=== PATIENT | male | born 1940 | race Caucasian/White ===

== ENCOUNTER 2022-12-03 11:37 | Emergency (ER) | payer MEDICARE, SELFPAY ==
[2022-12-03] VITALS (7 sets, daily range): BP systolic 94–140; BP diastolic 45–78; PULSE 94–105; RESP 12–20; TEMP 36.6–36.7; O2SAT 94–100; BMI 25.7
--- NOTE | 2022-12-03 11:41 | ECG_ITS ---
APPROVED REPORT Exam: Resting ECG HR:99 bpm ECG Measurements Heart Rate 99 AXES [place] 134 P -26 QRSd 138 QRS -46 QT 380 T 40 QTc 436 Conclusion SINUS RHYTHM RIGHT BUNDLE BRANCH BLOCK [120+ ms QRS DURATION, UPRIGHT V1, 40+ ms S IN I/aVL/V4/V5/V6] LEFT ANTERIOR FASCICULAR BLOCK [QRS AXIS <= -45, QR IN I, RS IN II] ABNORMAL ECG UNCONFIRMED REPORT Electronically signed by : Rolando Medeiros MD 12/05/2022 15:08:11
--- NOTE | 2022-12-03 11:45 | PC.NURSE ---
Dr. Fraga at BS for pt eval
--- NOTE | 2022-12-03 11:56 | CT_ITS ---
FINAL REPORT CLINICAL HISTORY: right flank pain, hypotension, recent surgery COMPARISON: None FINDINGS: CT OF THE ABDOMEN AND PELVIS WITH CONTRAST Axial CT images of the abdomen and pelvis were obtained after the administration of IV contrast. Coronal and sagittal reformatted images were also obtained and reviewed. This study was performed with techniques to keep radiation doses as low as reasonably achievable (ALARA). Individualized dose reduction techniques using automated exposure control or adjustment of mA and/or kV according to the patient's size were employed. Abdomen: There is mild bibasilar atelectasis present, and a small amount of ascites in the abdomen. Moderate vascular calcifications are noted. The heart is normal in size. There are postoperative changes of a right hemicolectomy. The liver has an unremarkable appearance, without evidence of mass or biliary ductal dilatation. The spleen is unremarkable. No adrenal mass is present. The pancreas has an unremarkable appearance. The kidneys are normal, without evidence of mass or hydronephrosis. The aorta is normal in caliber. There is no free fluid or adenopathy. There are multiple fluid-filled bowel loops in a nonspecific pattern, with a mildly dilated small bowel loop in the right upper quadrant. A partial small bowel obstruction cannot be excluded. Pelvis: There is a dumbbell shaped fluid collection in the central pelvis, which extends into the left inguinal canal with a thin wall, suggestive of a chronic hematoma or abscess. The urinary bladder is unremarkable. IMPRESSION: Multiple fluid-filled bowel loops, with a mildly dilated small bowel loop in the right upper quadrant, and a partial small bowel obstruction cannot be excluded. Would recommend a follow-up CT if clinically indicated. Dumbbell shaped fluid collection in the central pelvis extending into the left inguinal canal with a thin wall. This likely represents a chronic hematoma or an abscess. Reviewed, Interpreted and Dictated by Kevin Rucker III, MD Transcribed by Phyllis Ko Authenticated and [facility]
--- NOTE | 2022-12-03 11:59 | HMH.EDGENADL ---
Discharge Plan Disposition Patient Disposition: Home, Self-Care Referrals Follow up/Referrals: Provider,Referral, [Primary Care Provider] - See instructions Activity Restrictions/Add. Instructions Additional Instructions/Restrictions: Lease follow-up with your primary care doctor as previously instructed and with your general surgeons as previously instructed return with any worsening symptoms. Please push fluids by mouth as discussed and return with any other concerns. Clinical Impressions Clinical Impression: Near syncope, Acute hypotension, Acute dehydration, Acute flank pain Instructions Patient Instructions: DI for Syncope in Adults (Fainting), DI for Syncope in Children (Fainting) Discharge ED Provider: Nina Fraga General Adult HPI General Chief complaint: Syncope Stated complaint: syncope Time Seen by Provider: 12/03/22 11:39 Mode of Arrival: EMS Source of Information: Patient and EMS Limitations: No Limitations Description of Symptoms (Recalled from ER Triage Doc. by RN): Pt reports dizziness upon standing, near syncope at home. Per EMS report syncople episode when moving pt out of his room at home, states bp dropped to 60/40 Upon arrival to ED pt reports feeling somewhat better. Pt denies n/v/d or fever. Pt has a healing incision on abd from a colon resection in the past few weeks. History of Present Illness HPI narrative: Patient is an 82-year-old male here with hypotension and near syncope. 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 He is not on any anticoagulants and states he has not had any melena hematochezia or hematemesis. Has had some lightheadedness and decreased p.o. intake specifically water since his surgery but already did not drink much at baseline prior to his surgery. This past Tuesday he had a lightheaded event which made him fall and intermittently he been feeling okay but this morning he felt very lightheaded particular with changing positions and had 2 near syncopal episodes. EMS in route state his blood pressure was 60/40 they gave him 500 cc of fluid and patient states he feels much better. Patient denies any chest pain shortness of breath or any other symptoms associated with this today. No fevers or chills etc. Only other symptom patient complains of his severe right flank pain has been going on for several days. Related Data Allergies Allergy/AdvReac Type Severity Reaction Status Date / Time No Known Allergies Allergy Verified 12/03/22 11:55 [facility] Disclaimer: The information contained in this section may have been updated after the patient was seen, as this information can be updated by other users. Social History Smoking Status: Never smoker alcohol intake: never current occupational status: other Travel in the last 8 weeks: None ROS Obtained: Yes All systems reviewed & no additional complaints except as documented Physical Exam General General appearance: alert and in no apparent distress Respiratory Respiratory exam: Present normal lung sounds bilaterally; Absent respiratory distress, wheezes or stridor Cardiovascular Cardiovascular exam: Present regular rate; Absent tachycardia Abdominal Exam Abdominal exam: Present soft and other (Midline incisional scar well-healing); Absent distention or tenderness Back Exam Back exam: Present normal inspection; Absent tenderness (Specifically no midline tenderness), CVA tenderness (R) or CVA tenderness (L) Neurological Exam Neurological exam: Present alert and oriented X3 Medical Decision Making Campbell Inquiry Pt receiving controlled substance: No Vital Signs: 12/03/22 11:38 12/03/22 11:55 12/03/22 12:30 Temperature 97.9 F Temperature Source Temporal Artery Scan Pulse Rate 96 H Pulse Rate [Apical] 98 H Pulse Rate [Orthostatic Lying Apical] 105 H Respiratory Rate 16 20 Blood Pressure 111/65 Blo
[2022-12-03 12:29] LABS: Basophils % 0.2 % (0.1-2.0); Eosinophils # 0.1 K/mm3 (0.0-0.4); Eosinophils % 0.8 % (0.1-12.0); Hematocrit 38.7 % (42.0-52.0); Hemoglobin 12.4 g/dL (14.1-18.0); Lymphocytes % 5.6 % (10-50); Mean Corpuscular Volume 93.9 fl (80-94); Monocytes # 1.2 K/mm3 (0.1-1.0); Monocytes % 6.5 % (1.7-9.3); Neutrophils # 15.9 K/mm3 (1.8-7.8); Platelet Count 383 K/mm3 (142-424); Red Blood Count 4.12 M/mm3 (4.60-6.20); Red Cell Distribution Width 13.6 % (11.5-17.5); White Blood Count 18.3 K/mm3 (4.8-10.8)
[2022-12-03 12:30] LABS: MANUAL DIFFERENTIAL MANUAL DIFFERENTIAL (MANUAL DIFF)
[2022-12-03 12:37] LABS: Alanine Aminotransferase 31 U/L (12-78); Albumin Level 3.2 g/dl (3.5-5.0); Albumin/Globulin Ratio 0.8 (1.1-1.8); Alkaline Phosphatase 116 U/L (38-126); Anion Gap 12.6 mEq/L (5-15); Aspartate Amino Transferase 29 U/L (17-59); Bilirubin,Total 0.2 mg/dl (0.2-1.3); Blood Urea Nitrogen 30 mg/dl (9-20); Calcium 8.5 mg/dl (8.4-10.2); Carbon Dioxide 30 mmol/L (22.0-30.0); Chloride 99 mmol/L (98-107); Creatinine Clearance Estimated 58 mL/min (50-200); Estimated Glomerular Filt Rate 64 ml/min (>60); GFR (African American) 78 ML/MIN (>60); Globulin 3.9 g/dL (1.3-3.2); Glucose 115 mg/dl (74-100); Magnesium 1.8 mg/dl (1.6-2.3); Phosphorous 2.9 mg/dl (2.5-4.5); Potassium 3.6 mmoL/L (3.5-5.1); Sodium 138 mmol/L (136-145); Total Protein,Serum 7.1 g/dl (6.3-8.2)
[2022-12-03 12:43] LABS: Lymphocytes % 5 % (10-50); Monocytes % 7 % (2-9); Neutrophils % 88 % (42-76); Platelet Estimate Normal; RBC Morphology Normal; Total Cells Counted 100
[2022-12-03 12:48] LABS: Troponin I < 0.01 ng/ml (0.00-0.034)
[2022-12-03 12:57] LABS: NT Pro Brain Natriuretic Pep. 386 pg/mL (0-450)
--- NOTE | 2022-12-03 12:59 | PC.NURSE ---
Pt gone to RAD via stretcher
--- NOTE | 2022-12-03 13:12 | PC.NURSE ---
Pt returned from RAD
--- NOTE | 2022-12-03 13:26 | PC.NURSE ---
Dr. Fraga at to speak with pt/visitor
--- NOTE | 2022-12-03 13:38 | PC.NURSE ---
pt resting in bed no needs, at bs
--- NOTE | 2022-12-03 14:45 | PC.NURSE ---
Dr. Fraga at BS to update pt/visitor
== END 2022-12-03 15:08 | disposition home or self-care (01) ==
PROVIDERS: Emergency Provider Student in an Organized Health Care Education/Training Program
DX: R55 Syncope and collapse (principal); E86.0 Dehydration; I95.9 Hypotension, unspecified; R10.9 Unspecified abdominal pain
CPT/HCPCS: 74177; 80053; 83735; 83880; 84100; 84484; 85007; 85025; 93005; 96360; 99285; Q9967

== ENCOUNTER 2023-09-15 09:36 | Outpatient (CLI) | payer MEDICARE, SELFPAY ==
--- NOTE | 2023-09-15 09:40 | XR_ITS ---
FINAL REPORT CLINICAL HISTORY: left shoulder pain COMPARISON: None FINDINGS: Two views show no evidence of an acute, displaced fracture or dislocation of the visualized bony architecture. 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 Osteopenia is present. IMPRESSION: Degenerative changes. No acute bony abnormality. Reviewed, Interpreted and Dictated by Albina Dong MD Transcribed by Phyllis Ko Authenticated and [facility]
--- NOTE | 2023-09-15 12:17 | ECG_ITS ---
APPROVED REPORT Exam: Resting ECG HR:89 bpm ECG Measurements Heart Rate 89 AXES NH 141 P -28 QRSd 136 QRS -44 QT 389 T 35 QTc 435 Conclusion SINUS RHYTHM WITH OCCASIONAL VENTRICULAR PREMATURE COMPLEXES LEFT AXIS DEVIATION [QRS AXIS < -30] RIGHT BUNDLE BRANCH BLOCK [120+ ms QRS DURATION, UPRIGHT V1, 40+ ms S IN I/aVL/V4/V5/V6] ABNORMAL ECG UNCONFIRMED REPORT Electronically signed by : Rolando Medeiros MD 09/16/2023 08:46:41
[2023-09-15 12:23] LABS: Basophils # 0.1 K/mm3 (0-0.2); Basophils % 0.5 % (0.1-2.0); Eosinophils # 0.1 K/mm3 (0.0-0.4); Eosinophils % 0.7 % (0.1-12.0); Hematocrit 45.2 % (42.0-52.0); Hemoglobin 15.1 g/dL (14.1-18.0); Lymphocytes # 1.7 K/mm3 (0.7-4.5); Lymphocytes % 16.7 % (10-50); Mean Corpuscular HGB Conc 33.4 g/dL (31.8-35.4); Mean Corpuscular Hemoglobin 30.7 pg (27.0-31.2); Mean Platelet Volume 7.2 fl (7.4-10.4); Monocytes # 0.5 K/mm3 (0.1-1.0); Monocytes % 5.2 % (1.7-9.3); Neutrophils # 7.7 K/mm3 (1.8-7.8); Neutrophils % 76.9 % (37.0-80.0); Platelet Count 214 K/mm3 (142-424); Red Blood Count 4.91 M/mm3 (4.60-6.20)
[2023-09-15 13:21] LABS: Anion Gap 13.5 mEq/L (5-15); Blood Urea Nitrogen 14 mg/dl (9-20); Calcium 9.5 mg/dl (8.4-10.2); Carbon Dioxide 26 mmol/L (22.0-30.0); Chloride 102 mmol/L (98-107); Estimated Glomerular Filt Rate 108 ml/min (>60); GFR (African American) 131 ML/MIN (>60); Glucose 98 mg/dl (74-100); Potassium 4.5 mmoL/L (3.5-5.1); Sodium 137 mmol/L (136-145)
== END 2023-09-15 23:59 | disposition home or self-care (01) ==
PROVIDERS: Surgery; PCP Family Medicine; Visit Provider Physician Assistant
DX: M25.512 Pain in left shoulder (principal); K40.90 Unilateral inguinal hernia, without obstruction or gangrene, not specified as recurrent
CPT/HCPCS: 36415; 73030; 80048; 85025; 93005

== ENCOUNTER 2023-09-21 06:48 | Day surgery (SDC) | payer MEDICARE, SELFPAY ==
[2023-09-19 11:45] VITALS: BMI 25.8
[2023-09-21] VITALS (11 sets, daily range): BP systolic 148–188; BP diastolic 74–105; PULSE 62–88; RESP 12–18; TEMP 36.2–36.3; O2SAT 97–99
[2023-09-21] MEDS: LACTATED RINGERS 1000ML 1,000 ML 25 ML IV (07:29)
--- NOTE | 2023-09-21 07:54 | EXP.ANES.CKL ---
[facility] Disclaimer: The information contained in this section may have been updated after the patient was seen, as this information can be updated by other users. Medical History Cirrhosis of liver Hypertension Acute flank pain Acute dehydration Acute hypotension Near syncope Surgical History H/O resection of small bowel Family History Grandfather Cancer Father Cancer Social History Smoking Status: Former smoker alcohol intake: former substance use type: denies use current occupational status: retired and other Travel in the last 8 weeks: None housing: house marital status: [facility] Anesthesia Checklist Patient Identification Patient Identification: Arm Band and Verbal (Name & ) Structural Data Admitted From: Home Planned Operative Procedure/s: Right inguinal hernia repair Consent for Planned Operative Procedure(s) Verified: Yes Verified Documents: Surgical Consent and History and Physical NPO Status Verified Time NPO: 00:00 Chart Verification Results Verified: CBC and BMP Additional verifications Anesthesia Reactions: Yes ( combative ) Hx Blood Transfusions: No Blood Transfusion Reaction: No Airway Assessment Mallampati Score:: Class II C-Spine Mobility Assessed: Yes TMJ Mobility Assessed: Yes Dentition: Poor Dentition (Significant amount missing and broken) Neurological Assessment Level of Consciousness: Awake Hx Seizures: No Numbness or tingling in extremities: No Anesthesia Plan Anesthesia Risk discussed: Yes Anesthesia Plan: Verified ASA Class: II Anesthesia Type: General
[2023-09-21] MEDS: CEFAZOLIN SODIUM 2 GM in 0.9 % SODIUM CHLORIDE 100 ML IV (08:29)
[2023-09-21] MEDS: ROPIVACAINE 0.5% 30ML VIAL 150 MG (08:48)
[2023-09-21] MEDS: LIDOCAINE 1% 20ML MDV 20 ML (08:48)
--- NOTE | 2023-09-21 10:18 | P.OP_ITS ---
Date of procedure: 09/21/23 Pre-op Diagnosis:: Right inguinal hernia Post-op Diagnosis:: Same Procedure performed:: Open right inguinal hernia repair with placement of large size Bard prefix mesh plug and onlay mesh Surgeon:: Kevin Cordero MD RESTORATIVE ART EMBALMER:: Rose Farrell Anesthesia: GETA Estimated blood loss (mL): 15 Clinical Note:: Patient is a pleasant 82-year-old male from [place] referred by Dr. Aston Nugent for right inguinal hernia. Patient states that he travels to [place] in the wintertime. He states that last fall he had noticed some symptoms in the right groin area. He describes when he is on his feet for some time and walking he has a burning pain. He did see some physicians in [place] and had an ultrasound performed apparently. Exact details are unknown. Consideration was being given for possible surgery but this was not pursued any further. He states that he has had less pain than he had several months ago. However when he is on his feet for some period of time he has swelling and a bulge in burning discomfort. He states that when he lies supinely the bulge disappears . Denies any urinary symptoms. Of note, the patient had experienced a trauma from falling and had a bowel injury and actually underwent laparotomy with bowel r esection November 09, 2022 at [facility] and had a stay at [facility] rehab facility after discharge. Patient did ask about laparoscopic repair. I informed him that given the probable unilateral nature, comorbidities, and previous laparotomy that this would not be indicated. Plan was made for open right inguinal hernia repair. Operative findings:: He had a moderate indirect hernia with hernia sac and some herniated preperitoneal fat as a cord lipoma . Operative note:: Consent was obtained patient was taken to the operating room. He was given preoperative intravenous antibiotics. In the operating room he was placed in a supine position. General anesthesia was induced via endotracheal tube. Navarrete catheter was placed. Lower abdomen and perineum were prepped and draped in the standard surgical fashion. Oblique incision was made in the right inguinal area superior to landmarks identifying the inguinal ligament. Dissection was carried down through subcutaneous tissues and Zion's fascia using electrocautery. External oblique muscle was cleaned free and exposed. External oblique muscle was opened along the length of its fibers exposing the underlying cord structures. The ilioinguinal nerve was identified and preserved although it was densely adherent to the distal cord distal to the external ring and consideration was being given for possible division of the nerve. However with meticulous dissection it was able to be dissected free and preserved. Cord structures were then dissected free and encircled with a [place] drain. Dissection was carried out initially identifying some herniated preperitoneal fat along the cord and this was dissected free from the cord to the internal ring. It was ligated with Vicryl ties and excised and sent off with the specimen. There were 2 small pedicles of cord lipoma. Hernia sac was then identified and dissected free from the cord to the internal ring. It was opened. Hernia sac was ligated with a couple of 2-0 Vicryl suture ligatures. Extraneous peritoneum of the hernia sac was excised and sent with the specimen. Remainder of the herniated contents were reduced. Large size Bard prefix mesh plug was inserted lateral to the cord to reconstruct the internal ring. The internal leaves of the mesh were sutured superiorly and laterally to transversalis muscle and the shelving edge of the inguinal ligament respectively. Onlay mesh was then sutured medially to Jasbir's ligament with a running 2-0 PDS inferior laterally along the shelving edge of the inguinal ligament and secured superior medially to the transversalis fascia with interrupted 2-0 PDS horizontal mattress sutures. Cord structures and nerve were returned to the normal anatomic position. The 2 tails of the mesh were then used to encircle the cord structures and sutured to 1 another with a couple of PDS sutures to reconstruct the internal ring. Irrigation was performed until clear. There was good hemostasis. Local anesthetic was infiltrated deeply and superficially with a local anesthetic infiltrated in the region of the inguinal nerve as well. External oblique muscle was closed over the cord structures with a running 2-0 Vicryl suture. Zion's fascia was closed with running 2-0 Vicryl. Skin was closed with 4-0 Monocryl in a running subcuticular fashion. Dermabond and dressings were applied. Condition: stable Disposition: PACU Complications:: None immediately apparent
[2023-09-21 11:07] LABS: Microscopic,Cath URINE MICROSCOPIC (MICROSCOPIC)
[2023-09-21 11:14] LABS: Appearance,Urine/Cath CLEAR (Clear); Bilirubin,Cath Negative (Negative); Blood, Urine/Cath Negative (Negative); Color,Urine/Cath YELLOW (Yellow); Glucose,Urine/Cath (UA) Negative (Negative); Ketones,Urine/Cath Negative (Negative); Leukocyte Esterase,Cath Negative (Negative); Nitrate,Cath Negative (Negative); PH,Urine/Cath 6.5 (5.0-8.5); Protein,Urine/Cath Negative (Negative); Specific Gravity, Urine/Cath 1.015 (1.005-1.030); Urobilinogen,Cath 0.2 EU/dl (0.2)
--- NOTE | 2023-09-21 15:22 | P.PNANES_ITS ---
[facility] Anesthesia Record Part I Anesthesia Record I Intake, IV Amount: 850 Hydration: Adequate Estimated blood loss (mL): 25 Urine output (mL): 25 Blood Products used (#): none Blood Pressure: 148/105 SaO2: 97 Pulse Rate: 79 Airway Patency: Patent Respiratory Rate: 14 Temperature: 97.2 F Patient is:: Awake (Talking) and Stable Stable to PACU at:: 10:30
--- NOTE | 2023-09-21 15:25 | P.PNANES_ITS ---
[facility] Anesthesia Record Part II Anesthesia Record Part II Discharge Time: 10:55 Destination: Surgical Day Care (OP Surgery) PACU nurse assessment reviewed?: Yes Patient Condition:: Good Anesthesia Complications:: None Swallowing reflex intact?: Yes Airway Patency: Patent Cyanosis?: No Blood Pressure: 170/89 SaO2: 97 Respiratory Rate: 16 Pulse Rate: 62 Temperature: 97.2 F Mental Status: Alert & Oriented Pain level:: 0 Nausea and/or vomitting:: None Intake, IV Amount: 850 Hydration: Adequate
== END 2023-09-21 11:40 | disposition home or self-care (01) ==
PROVIDERS: PCP Family Medicine; Visit Provider Surgery
PROC: (CPT 49505; principal; 2023-09-21 08:45)
DX: K40.90 Unilateral inguinal hernia, without obstruction or gangrene, not specified as recurrent (principal); D17.6 Benign lipomatous neoplasm of spermatic cord
CPT/HCPCS: 49505; 81001; 88302; 96374; J0690; J1100; J2250; J2405; J3010; J7120